=== PATIENT | female | born 1985 ===

== ENCOUNTER 2017-09-20 16:39 | Emergency (ER) | payer OTHER ==
[2017-09-20 16:45] VITALS: BP 108/71; PULSE 72; RESP 16; TEMP 97.6; O2SAT 98
[2017-09-20] MEDS ORDERED: Acetaminophen-Codeine 300/30 mg Tab PO STA (17:11)
--- NOTE | 2017-09-20 17:15 | ED PDOC ---
HPI: General Adult Time Seen by Provider: 09/20/17 17:00 Chief Complaint (Nursing): Abnormal Skin Integrity History Per: Patient History/Exam Limitations: no limitations Onset/Duration Of Symptoms: Days (x 3) Current Symptoms Are (Timing): Still Present Additional Complaint(s): Nydia is a 32 year old female who presents to the emergency department complaining of pain around rectum for 3 days. Patient reports pain with bowel movement. Denies discharge or fever. Patient reports taking Advil with no relief. No other medical problems at this time. PMD: No Family Provider Past Medical History Reviewed: Historical Data, Nursing Documentation, Vital Signs Vital Signs: Last Vital Signs Temp 97.6 F 09/20/17 16:44 Pulse 72 09/20/17 16:44 Resp 16 09/20/17 16:44 BP 108/71 09/20/17 16:44 Pulse Ox 98 09/20/17 17:32 - Medical History PMH: No Chronic Diseases - Surgical History Surgical History: No Surg Hx - Family History Family History: States: Unknown Family Hx - Home Medications Home Medications: Ambulatory Orders Medication Instructions Recorded Acetaminophen with Codeine 1 tab PO Q6H PRN #8 tab 09/20/17 [Tylenol with Codeine No. 3 300 mg-30 mg] Docusate [Colace] 100 mg PO BID #6 cap 09/20/17 Sulfamethoxazole/Trimethoprim 1 tab PO BID #10 tab 09/20/17 [Bactrim DS 800 mg-160 mg] - Allergies Allergies/Adverse Reactions: Allergies Allergy/AdvReac Type Severity Reaction Status Date / Time No Known Allergies Allergy Verified 09/20/17 16:43 Review of Systems ROS Statement: Except As Marked, All Systems Reviewed And Found Negative Constitutional: Negative for: Fever Gastrointestinal: Positive for: Rectal Pain (Pain around rectal), Other (Pain with bowel movement) Genitourinary Female: Negative for: Vaginal Discharge Physical Exam - Reviewed Nursing Documentation Reviewed: Yes Vital Signs Reviewed: Yes - Physical Exam Gastrointestinal/Abdominal: Positive for: Normal Exam, Soft. Negative for: Tenderness Rectal: Positive for: Tenderness (Tenderness to the perirectal area at 1 o'clock ). Negative for: Hemorrhoids, Mass, Other ((-): edema, obvious fissures, fluctuations) - ECG O2 Sat by Pulse Oximetry: 98 (RA) Pulse Ox Interpretation: Normal Medical Decision Making Medical Decision Making: Time: 17:00 Plan: - ED Urine Time: 17:11 - Tylenol/Codeine 300 MG/30 MG Upon provider evaluation patient is medically stable, and requires no further treatment in the ED at this time. Patient will be discharged with Rx for Tylenol with Codeine, Colace, and Bactrim DS. Counseling was provided and all questions were answered regarding diagnosis. There is agreement to discharge plan. Return if symptoms persist or worsen. Scribe Attestation: Documented by Sanket Licea, acting as a scribe for Norma Harman MD Provider Scribe Attestation: All medical record entries made by the Scribe were at my direction and personally dictated by me. I have reviewed the chart and agree that the record accurately reflects my personal performance of the history, physical exam, medical decision making, and the department course for this patient. I have also personally directed, reviewed, and agree with the discharge instructions and disposition. Disposition - Clinical Impression Clinical Impression: Rectal pain - Patient ED Disposition Is Patient to be Admitted: No - Disposition Referrals: [facility] [Outside] Disposition: Routine/Home Disposition Time: 17:14 Condition: STABLE Prescriptions: Acetaminophen with Codeine [Tylenol with Codeine No. 3 300 mg-30 mg] 1 tab PO Q6H PRN #8 tab PRN Reason: Pain, Severe (8-10) Docusate [Colace] 100 mg PO BID #6 cap Sulfamethoxazole/Trimethoprim [Bactrim DS 800 mg-160 mg] 1 tab PO BID #10 tab Instructions: Rectal Pain (ED) Forms: Gigamon (Guinean), Gigamon (Czech) Print Language: NAMIBIAN
[2017-09-20] MEDS ORDERED: Acetaminophen-Codeine 300/30 mg Tab ONE (18:15)
== END 2017-09-20 18:24 | disposition home or self-care (01) ==
LOC: H.ER 16:39
DX: K62.89 Other specified diseases of anus and rectum (principal)

== ENCOUNTER 2017-10-06 20:09 | Inpatient (IN) | payer MEDICAID, SELFPAY ==
[2017-10-06] MEDS ORDERED: Sodium Chloride 0.9% 1,000 ML IV STA (21:52)
[2017-10-06] MEDS ORDERED: Morphine 4 MG/ML VIAL ONE (22:23)
[2017-10-06 22:24] LABS: BASO % 0.2 % (0.0-2.0); EOS # 0.1 K/uL (0.0-0.7); EOS % 0.8 % (0.0-4.0); HEMOGLOBIN 12.4 g/dL (12.0-16.0); LYMPH # 3.3 K/uL (1.0-4.3); LYMPH % 23.7 % (20.0-40.0); MEAN CELL VOLUME 84.2 fl (81.0-99.0); MEAN CORPUSCULAR HEMOGLOBIN 27.7 pg (27.0-31.0); MEAN CORPUSCULAR HGB CONC 32.9 g/dL (33.0-37.0); MEAN PLATELET VOLUME 8.8 fl (7.2-11.7); MONO # 0.9 K/uL (0.0-0.8); MONO % 6.8 % (0.0-10.0); NEUT # 9.4 K/uL (1.8-7.0); NEUT % 68.5 % (50.0-75.0); RBC 4.48 Mil/uL (3.80-5.20); WHITE BLOOD COUNT 13.7 K/uL (4.8-10.8)
[2017-10-06 22:35] LABS: ALB/GLOB RATIO 1.1 (1.0-2.1); ALBUMIN 3.9 g/dL (3.5-5.0); ALT/SGPT 26 U/L (9-52); AST/SGOT 22 U/L (14-36); BLOOD UREA NITROGEN 14 mg/dl (7-17); CALCIUM 8.8 mg/dL (8.4-10.2); GFR AFRICAN-AMERICAN > 60; GFR NON-AFRICAN AMERICAN > 60
[2017-10-06] MEDS ORDERED: Sodium Chloride 0.9% 50 ML IV ONE (23:05)
[2017-10-06] MEDS ORDERED: Iohexol 300 100 ML IJ ONE (23:05)
--- NOTE | 2017-10-07 00:04 | CT ---
EXAM: CT Pelvis With Intravenous Contrast EXAM DATE/TIME: 10/06/2017 9:53 PM CLINICAL HISTORY: 32 years old, female; Pain; Other: Rectal pain TECHNIQUE: Axial computed tomography images of the pelvis with intravenous contrast. All CT scans at this facility use one or more dose reduction techniques, viz.: automated exposure control; ma/kV adjustment per patient size (including targeted exams where dose is matched to indication; i.e. head); or iterative reconstruction technique. Coronal and sagittal reformatted images were created and reviewed. CONTRAST: 95 mL of [id number] administered intravenously. COMPARISON: There are no prior studies for comparison. FINDINGS: Bowel: Small bowel loops in the pelvis are mildly distended with fluid and air.ileocecal region is incompletely imaged. Visualized portions of the appendix is unremarkable Colon is incompletely distended which limits evaluation. There is minimal diverticulosis. There is minimal hyperemia in the right perirectal soft tissues. There is a 4 mm low-attenuation right perirectal lesion with peripheral enhancement, image 80 series 3, image 82 series 601 Appendix: See stomach and bowel Intraperitoneal space: There is no significant fluid.There is no free air. Bladder: Bladder is partially distended. Reproductive: Uterus is unremarkable. There is prominence of the right adnexa. There is a small corpus luteum in the right adnexa. There are small right pelvic varices. There is an 8 x 8 x 7.5 cm left adnexal cyst. Bones/joints: There are no acute osseous abnormalities. Soft tissues: unremarkable Vasculature: There are calcified phleboliths. Iliacs are unremarkable. Lymph nodes: unremarkable IMPRESSION: 8 x 8 x 7.5 cm left adnexal cyst; prominence of the right adnexa with small corpus luteum; minimal right perirectal inflammation with 4 mm low-attenuation enhancing lesion possibly microabscess Additional nonemergent findings as described above.
[2017-10-07] MEDS ORDERED: Clindamycin 600mg/50ml NS 600 MG/50 ML BAG IVPB SCH (01:00)
--- NOTE | 2017-10-07 02:20 | CP.PCM.HP ---
History of Present Illness - History of Present Illness History of Present Illness: 32 yr old F presents to ED with complaint of severe right arpan-anal pain worsening over the past 7 weeks. Denies any significant PMHx. Patient reports she initially felt a nontender small bump to the right of her anus towards the end of july 2017. The bump became painful in August and since then has worsened to a 10/10 today, not alleviated by Advil or sitz bath. Patient cannot tolerate bowel movements despite minimal soft stool. She reports ED visit on and clinic f/u visit on 10/03/17 with no improvement despite completion of Bactrim DS 800/160mg PO x 5 days. Denies hx of constipation, anal sex, waxing or shaving. Denies fevers, chills, nausea, vomiting, hematochezia, hematuria or dysuria. No hx of hemorrhoids. No similar symptoms in the past. PMD: [facility]- had visit on 10/03/17 -Dr. Gaviria ObGyn: G0, LMP 09/19/17-menstrual cycle everymonth PMHx: none SurgHx: benign mass removed from right neck-2012 and right axilla 2014 FMHx: maternal grandmother-CAD; rest non-contributory SocHx: denies tobacco/Etoh or drugs Medications: Advil PRN for pain Allergies: NKDA ED course: vital signs wnl -CBC: WBC 13.7; CMP: K+ 3.5, rest wnl -Pelvis CT: minimal right arpan-rectal inflammation with 4mm low attenuation enhancing lesion, possibly microabscess (see full report) -Toradol 15mg IVP stat, Morphine 4mg IVP stat, NS 1,000mls/hr, Clindamycin 600mg IVP Q12, Blood culture, Surgery Consult Present on Admission - Present on Admission Any Indicators Present on Admission: No History of DVT/PE: No History of Uncontrolled Diabetes: No Urinary Catheter: No Decubitus Ulcer Present: No History Surgical Site Infection Following: None Review of Systems - Constitutional Constitutional: absent: Chills, Weight Loss, Weakness - EENT Eyes: absent: Blurred Vision, Change in Vision Nose/Mouth/Throat: absent: Nasal Congestion, Nasal Discharge - Cardiovascular Cardiovascular: absent: Chest Pain, Palpitations - Respiratory Respiratory: absent: Cough, Dyspnea - Gastrointestinal Gastrointestinal: absent: Abdominal Pain, Constipation, Diarrhea, Hematochezia, Nausea, Vomiting - Genitourinary Genitourinary: absent: Difficulty Urinating, Dysuria, Hematuria - Reproductive: Female Reproductive:Female: Normal Menses - Musculoskeletal Musculoskeletal: absent: Back Pain - Integumentary Integumentary: Skin Pain (right arpan-anal area). absent: Bleeding Lesions, Pruritus - Neurological Neurological: absent: Confusion, Headaches, Weakness - Hematologic/Lymphatic Hematologic: absent: Easy Bleeding, Easy Bruising Past Patient History - Past Social History Smoking Status: Never Smoked - PSYCHIATRIC Hx Substance Use: No - SURGICAL HISTORY Hx Surgeries: No - ANESTHESIA Hx Anesthesia: No Meds Allergies/Adverse Reactions: Allergies Allergy/AdvReac Type Severity Reaction Status Date / Time No Known Allergies Allergy Verified 10/07/17 02:00 Physical Exam - Constitutional Appears: No Acute Distress - Head Exam Head Exam: ATRAUMATIC, NORMOCEPHALIC - Eye Exam Eye Exam: EOMI, PERRL - ENT Exam ENT Exam: Mucous Membranes Moist - Neck Exam Neck exam: Positive for: Full Rom. Negative for: Lymphadenopathy - Respiratory Exam Respiratory Exam: Clear to Auscultation Bilateral, NORMAL BREATHING PATTERN - Cardiovascular Exam Cardiovascular Exam: REGULAR RHYTHM, +S1, +S2 - GI/Abdominal Exam GI & Abdominal Exam: Normal Bowel Sounds, Soft. absent: Distended, Tenderness - Rectal Exam Additional comments: superficial non-erthymatous 0.5cm right arpan-anal papule-very tender; patient displayed guarding, could not tolerate digital rectal exam. - Extremities Exam Extremities exam: Positive for: full ROM. Negative for: calf tenderness, pedal edema - Neurological Exam Neurological exam: Alert, CN II-XII Intact, Oriented x3 - Psychiatric Exam Psychiatric exam: Normal Affect, Normal Mood - Skin Skin Exam: Dry, Intact, Normal Color, Warm Results - Vital Signs Recent Vital Signs: Last Vital Signs Temp 99.4 F 10/06/17 20:24 Pulse 90 10/06/17 20:24 Resp 18 10/06/17 20:24 BP 125/71 10/06/17 20:24 Pulse Ox 99 10/06/17 20:24 - Labs Result Diagrams: 10/06/17 22:20 10/06/17 22:20 Labs: Laboratory Results - last 24 hr 10/06/17 10/06/17 22:20 22:20 WBC 13.7 H RBC 4.48 Hgb 12.4 Hct 37.7 MCV 84.2 MCH 27.7 MCHC 32.9 L RDW 13.0 Plt Count 197 MPV 8.8 Neut % (Auto) 68.5 Lymph % (Auto) 23.7 Haakon % (Auto) 6.8 Eos % (Auto) 0.8 Baso % (Auto) 0.2 Neut # (Auto) 9.4 H Lymph # (Auto) 3.3 Haakon # (Auto) 0.9 H Eos # (Auto) 0.1 Baso # (Auto) 0.0 Sodium 141 Potassium 3.5 L Chloride 104 Carbon Dioxide 25 Anion Gap 16 BUN 14 Creatinine 0.5 L Est GFR ( Amer) > 60 Est GFR (Non-Af Amer) > 60 Random Glucose 106 H Calcium 8.8 Total Bilirubin 0.3 AST 22 ALT 26 Alkaline Phosphatase 85 Total Protein 7.7 Albumin 3.9 Globulin 3.7 Albumin/Globulin Ratio 1.1 Assessment & Plan - Assessment and Plan (Free Text) Assessment: 32 yr old F admitted for arpan-rectal abscess. 1. Arpan-rectal abscess with severe pain -Pelvis CT: minimal right arpan-rectal inflammation with 4mm low attenuation enhancing lesion, possibly microabscess (see full report) -CBC: WBC 13.7 -admit to med/surg -pain management, Colace PO BID, consider ID consult -Surgery consult: will follow recommendations -Clindamycin 600mg IVP Q12 2. DVT prophylaxis -patient ambulates, SCD's as needed - Date & Time Date: 10/07/17 Time: 13:50
--- NOTE | 2017-10-07 03:16 | ED PDOC ---
HPI: General Adult Time Seen by Provider: 10/06/17 20:35 Chief Complaint (Nursing): Abnormal Skin Integrity Chief Complaint (Provider): Rectal pain x 2 weeks History Per: Patient History/Exam Limitations: no limitations Onset/Duration Of Symptoms: Days Have you had recent travel within the past 21 days to any of the following countries: [place], [place], [place] or [place]?: No Current Symptoms Are (Timing): Still Present Additional Complaint(s): 32 yo female with no medical problems presents with rectal pain, more on the right for 2 weeks. Pt was placed on bactrim in ER and d/saima with tylenol #3. Pt reports no improvement. Pt was also seen at the clinic 2 days ago. Pt denies fever. Past Medical History Reviewed: Historical Data, Nursing Documentation, Vital Signs Vital Signs: Last Vital Signs Temp 98.4 F 10/07/17 01:54 Pulse 76 10/07/17 01:54 Resp 18 10/07/17 01:54 BP 108/62 10/07/17 01:54 Pulse Ox 98 10/07/17 01:54 - Medical History PMH: No Chronic Diseases - Surgical History Surgical History: No Surg Hx - Family History Family History: States: Unknown Family Hx - Living Arrangements Living Arrangements: With Family - Social History Current smoker - smoking cessation education provided: No - Home Medications Home Medications: Ambulatory Orders Medication Instructions Recorded No Known Home Med 10/07/17 - Allergies Allergies/Adverse Reactions: Allergies Allergy/AdvReac Type Severity Reaction Status Date / Time No Known Allergies Allergy Verified 10/07/17 02:00 Review of Systems ROS Statement: Except As Marked, All Systems Reviewed And Found Negative Constitutional: Negative for: Fever, Chills, Sweats Gastrointestinal: Positive for: Rectal Pain. Negative for: Nausea, Vomiting, Abdominal Pain Physical Exam - Reviewed Nursing Documentation Reviewed: Yes Vital Signs Reviewed: Yes - Physical Exam Appears: Positive for: Well, Non-toxic, No Acute Distress Head Exam: Positive for: ATRAUMATIC, NORMAL INSPECTION, NORMOCEPHALIC Skin: Positive for: Normal Color, Warm, DRY Eye Exam: Positive for: Normal appearance ENT: Positive for: Normal ENT Inspection Neck: Positive for: Normal, Painless ROM Cardiovascular/Chest: Positive for: Regular Rate, Rhythm Respiratory: Positive for: Normal Breath Sounds. Negative for: Decreased Breath Sounds, Accessory Muscle Use, Respiratory Distress Gastrointestinal/Abdominal: Positive for: Normal Exam, Bowel Sounds, Soft Back: Positive for: Normal Inspection Rectal: Positive for: Other (Tenderness right side, indurated/firm area) Extremity: Positive for: Normal ROM Neurologic/Psych: Positive for: Alert, Oriented - Laboratory Results Result Diagrams: 10/06/17 22:20 10/06/17 22:20 - ECG O2 Sat by Pulse Oximetry: 98 Medical Decision Making Medical Decision Making: CT with miroabscess and failed out patient treatment. Discussed admission with FM Resident. Disposition - Clinical Impression Clinical Impression: Perirectal abscess - Patient ED Disposition Is Patient to be Admitted: Yes - Disposition Disposition Time: 01:18 Condition: STABLE - Pt Status Changed To: Hospital Disposition Of: Observation - Admit Certification Admit to Inpatient:: M/S - POA Present On Arrival: None
[2017-10-07] MEDS ORDERED: Influenza Vaccine 18yr & older 0.5 ML/45 MCG SYR IM ONE (09:00)
--- NOTE | 2017-10-07 09:27 | CP.PCM.CON ---
History of Present Illness - History of Present Illness History of Present Illness: General Surgery: Dr Sethi Pt is a 32F with no significant PMH. Pt came to ED complaining of severe 10/10 right arpan-anal pain. Pt states it has been present for 6-7 weeks, and initially started as a small round lesion that was not very tender. Overtime pt states it got progressively larger and more tender, prompting her ED visit. Pt has been seen in the ED and clinic, and has completed a 5 day course of Bactrim as well as sitz baths, with no alleviation. States pain is significantly worse with defecation. Denies any blood on bowel movements or tissue paper. Denies any f/c, sob, chest pain, n/v. PMH: none PSH: neck mass excision, axillary mass excision 2014 LMP: 09/19/17 Review of Systems - Review of Systems All systems: reviewed and no additional remarkable complaints except (as per hpi ) Past Patient History - Past Medical History & Family History Past Medical History?: No - Past Social History Smoking Status: Never Smoked - CARDIAC Hx Cardiac Disorders: No - PULMONARY Hx Respiratory Disorders: No - NEUROLOGICAL Hx Neurological Disorder: No - HEENT Hx HEENT Problems: No - RENAL Hx Chronic Kidney Disease: No - ENDOCRINE/METABOLIC Hx Endocrine Disorders: No - HEMATOLOGICAL/ONCOLOGICAL Hx Blood Disorders: No Hx AIDS: No Hx Human Immunodeficiency Virus (HIV): No - INTEGUMENTARY Hx Dermatological Problems: No - MUSCULOSKELETAL/RHEUMATOLOGICAL Hx Musculoskeletal Disorders: No Hx Falls: No - GASTROINTESTINAL Hx Gastrointestinal Disorders: No - GENITOURINARY/GYNECOLOGICAL Hx Genitourinary Disorders: No - PSYCHIATRIC Hx Psychophysiologic Disorder: No Hx Substance Use: No - SURGICAL HISTORY Hx Surgeries: Yes Other/Comment: benign mass removal rt neck 2012 and rt axilla 2014 - ANESTHESIA Hx Anesthesia: Yes Hx Anesthesia Reactions: No Hx Malignant Hyperthermia: No Meds Allergies/Adverse Reactions: Allergies Allergy/AdvReac Type Severity Reaction Status Date / Time No Known Allergies Allergy Verified 10/07/17 02:00 - Medications Medications: Current Medications Acetaminophen (Tylenol 325mg Tab) 650 mg PO Q6 PRN PRN Reason: Pain, Mild (1-3) Docusate Sodium (Colace) 100 mg PO BID JACKY Enoxaparin Sodium (Lovenox) 40 mg SC HS JACKY PRN Reason: Protocol Ketorolac Tromethamine (Toradol) 15 mg IVP Q6 PRN PRN Reason: Pain, moderate (4-7) Morphine Sulfate (Morphine) 2 mg IVP Q6 PRN PRN Reason: Pain, severe (8-10) Physical Exam - Constitutional Appears: Non-toxic, No Acute Distress - Head Exam Head Exam: NORMAL INSPECTION - Eye Exam Eye Exam: Normal appearance - ENT Exam ENT Exam: Mucous Membranes Moist - Respiratory Exam Respiratory Exam: absent: Accessory Muscle Use, Respiratory Distress - Cardiovascular Exam Cardiovascular Exam: REGULAR RHYTHM. absent: Tachycardia - GI/Abdominal Exam GI & Abdominal Exam: Soft. absent: Tenderness - Rectal Exam Additional comments: small 2x2 cm area of erythema w/o induration there is a palpable 1x1 spherical tender lesion within the center of erythema - Extremities Exam Extremities exam: Negative for: pedal edema - Neurological Exam Neurological exam: Alert, Oriented x3 - Psychiatric Exam Psychiatric exam: Normal Affect, Normal Mood - Skin Skin Exam: Normal Color, Warm Results - Vital Signs Recent Vital Signs: Last Vital Signs Temp 97.4 F L 10/07/17 08:31 Pulse 71 10/07/17 08:31 Resp 18 10/07/17 08:31 BP 93/62 L 10/07/17 08:31 Pulse Ox 98 10/07/17 08:31 - Labs Result Diagrams: 10/06/17 22:20 10/06/17 22:20 Labs: Laboratory Results - last 24 hr 10/06/17 10/06/17 22:20 22:20 WBC 13.7 H RBC 4.48 Hgb 12.4 Hct 37.7 MCV 84.2 MCH 27.7 MCHC 32.9 L RDW 13.0 Plt Count 197 MPV 8.8 Neut % (Auto) 68.5 Lymph % (Auto) 23.7 Morris % (Auto) 6.8 Eos % (Auto) 0.8 Baso % (Auto) 0.2 Neut # (Auto) 9.4 H Lymph # (Auto) 3.3 Morris # (Auto) 0.9 H Eos # (Auto) 0.1 Baso # (Auto) 0.0 Sodium 141 Potassium 3.5 L Chloride 104 Carbon Dioxide 25 Anion Gap 16 BUN 14 Creatinine 0.5 L Est GFR ( Amer) > 60 Est GFR (Non-Af Amer) > 60 Random Glucose 106 H Calcium 8.8 Total Bilirubin 0.3 AST 22 ALT 26 Alkaline Phosphatase 85 Total Protein 7.7 Albumin 3.9 Globulin 3.7 Albumin/Globulin Ratio 1.1 Assessment & Plan - Assessment and Plan (Free Text) Assessment: 32F with questionable right arpan-rectal lesion Plan: cont abx NPO @ [place] for possible procedure tomorrow pt to be evaluate by attending before further recs will d/w Dr Navdeep Forde, PGY3
[2017-10-07] MEDS: Sodium Chloride 0.9% 1,000 ML IV SCH (11:26)
[2017-10-07] MEDS ORDERED: Potassium Chloride 10 mEq ER Tab PO SCH (13:00)
[2017-10-07] MEDS: Clindamycin 600mg/50ml NS 600 MG/50 ML BAG IVPB SCH (21:11)
[2017-10-07] MEDS: Enoxaparin 40 mg Syringe SC SCH (21:19)
[2017-10-08] MEDS: Sodium Chloride 0.9% 1,000 ML IV SCH (02:28)
[2017-10-08 06:19] LABS: HEMOGLOBIN 12.1 g/dL (12.0-16.0); MEAN CELL VOLUME 83.5 fl (81.0-99.0); MEAN CORPUSCULAR HGB CONC 33.5 g/dL (33.0-37.0); RBC 4.33 Mil/uL (3.80-5.20); RED CELL DISTRIBUTION WIDTH 13.1 % (11.5-14.5); WHITE BLOOD COUNT 7.9 K/uL (4.8-10.8)
[2017-10-08 06:43] LABS: BLOOD UREA NITROGEN 9 mg/dl (7-17); CALCIUM 8.2 mg/dL (8.4-10.2); GFR AFRICAN-AMERICAN > 60; GFR NON-AFRICAN AMERICAN > 60
--- NOTE | 2017-10-08 07:42 | CP.PCM.PN ---
Subjective - Date & Time of Evaluation Date of Evaluation: 10/08/17 Time of Evaluation: 07:40 - Subjective Subjective: General Surgery Progress Note: Dr Sethi 32 y/o female seen at bedside this AM. Pt states her pain is the same. Says she is having bowel movements that are normal in color and texture, but that her pain is still at its worst with defecation. She states the warm compresses are helping. Denies F/C/N/V. Objective - Vital Signs/Intake and Output Vital Signs (last 24 hours): Temp Pulse Resp BP Pulse Ox 98.2 F 63 18 90/55 L 98 10/08/17 00:59 10/08/17 00:59 10/08/17 00:59 10/08/17 00:59 10/08/17 00:59 - Medications Medications: Current Medications Acetaminophen (Tylenol 325mg Tab) 650 mg PO Q6 PRN PRN Reason: Pain, Mild (1-3) Docusate Sodium (Colace) 100 mg PO BID [facility] Last Admin: 10/07/17 17:23 Dose: 100 mg Enoxaparin Sodium (Lovenox) 40 mg SC HS JACKY PRN Reason: Protocol Last Admin: 10/07/17 21:19 Dose: 40 mg Sodium Chloride (Sodium Chloride 0.9%) 1,000 mls @ 125 mls/hr IV .Q8H [facility] Last Admin: 10/08/17 02:28 Dose: 125 mls/hr Clindamycin Phosphate (Cleocin In Normal Saline) 600 mg in 50 mls @ 50 mls/hr IVPB Q12 JACKY PRN Reason: Protocol Last Admin: 10/07/17 21:11 Dose: 50 mls/hr Ketorolac Tromethamine (Toradol) 15 mg IVP Q6 PRN PRN Reason: Pain, moderate (4-7) Last Admin: 10/07/17 14:55 Dose: 15 mg Morphine Sulfate (Morphine) 2 mg IVP Q6 PRN PRN Reason: Pain, severe (8-10) Last Admin: 10/08/17 06:32 Dose: 2 mg - Labs Labs: 10/08/17 05:40 10/08/17 05:40 - Constitutional Appears: Well, Non-toxic, No Acute Distress - GI/Abdominal Exam GI & Abdominal Exam: Soft. absent: Tenderness - Rectal Exam Additional comments: small 2x2 cm area of erythema w/o induration there is a palpable 1x1 spherical tender lesion within the center of erythema - Neurological Exam Neurological Exam: Alert, Awake, Oriented x3 - Psychiatric Exam Psychiatric exam: Normal Affect, Normal Mood Assessment and Plan - Assessment and Plan (Free Text) Assessment: 32 y/o F with right arpan-rectal lesion Plan: -abscess too small for I&D -continue IV abx; leukocytosis trending down since admission -continue warm compresses -plan discussed with Dr. Sethi
--- NOTE | 2017-10-08 08:18 | CP.PCM.PN ---
Subjective - Date & Time of Evaluation Date of Evaluation: 10/08/17 Time of Evaluation: 07:50 - Subjective Subjective: Pt seen and examined at bedside laying on L lateral side. pt denies overnight events. Active bowel movements. Consistent rectal pain alleviated with Morphine and toradol. denies: cp/sob/n/v/dysuria Objective - Vital Signs/Intake and Output Vital Signs (last 24 hours): Temp Pulse Resp BP Pulse Ox 98.2 F 63 18 90/55 L 98 10/08/17 00:59 10/08/17 00:59 10/08/17 00:59 10/08/17 00:59 10/08/17 00:59 - Medications Medications: Current Medications Acetaminophen (Tylenol 325mg Tab) 650 mg PO Q6 PRN PRN Reason: Pain, Mild (1-3) Docusate Sodium (Colace) 100 mg PO BID [facility] Last Admin: 10/07/17 17:23 Dose: 100 mg Enoxaparin Sodium (Lovenox) 40 mg SC HS JACKY PRN Reason: Protocol Last Admin: 10/07/17 21:19 Dose: 40 mg Sodium Chloride (Sodium Chloride 0.9%) 1,000 mls @ 125 mls/hr IV .Q8H [facility] Last Admin: 10/08/17 02:28 Dose: 125 mls/hr Clindamycin Phosphate (Cleocin In Normal Saline) 600 mg in 50 mls @ 50 mls/hr IVPB Q12 JACKY PRN Reason: Protocol Last Admin: 10/07/17 21:11 Dose: 50 mls/hr Ketorolac Tromethamine (Toradol) 15 mg IVP Q6 PRN PRN Reason: Pain, moderate (4-7) Last Admin: 10/07/17 14:55 Dose: 15 mg Morphine Sulfate (Morphine) 2 mg IVP Q6 PRN PRN Reason: Pain, severe (8-10) Last Admin: 10/08/17 06:32 Dose: 2 mg - Labs Labs: 10/08/17 05:40 10/08/17 05:40 - Constitutional Appears: Well (Laying on L lateral side to alleviate rectal pain.) - Eye Exam Eye Exam: EOMI - Neck Exam Neck Exam: Full ROM - Respiratory Exam Respiratory Exam: Clear to Ausculation Bilateral, NORMAL BREATHING PATTERN. absent: Wheezes - Cardiovascular Exam Cardiovascular Exam: REGULAR RHYTHM, +S1, +S2 - GI/Abdominal Exam GI & Abdominal Exam: Soft, Normal Bowel Sounds. absent: Tenderness - Extremities Exam Extremities Exam: absent: Calf Tenderness - Back Exam Back Exam: absent: CVA tenderness (L), CVA tenderness (R) - Neurological Exam Neurological Exam: Alert, Awake, CN II-XII Intact, Oriented x3 - Psychiatric Exam Psychiatric exam: Normal Affect, Normal Mood Assessment and Plan - Assessment and Plan (Free Text) Plan: 1. Arpan-rectal abscess with severe pain -Pelvis CT: minimal right arpan-rectal inflammation with 4mm low attenuation enhancing lesion, possibly microabscess (please see full report) -CBC: WBC 13.7; 10/08/2017: 7.9 -admit to med/surg -pain management: Acetaminophen 325 mg q6; toradol 15mg q6 prn; morphine 2 mg ivp q6 prn -Colace 100mg PO BID -Surgery consult: abscess too small for I&d; warm compress and continue abx -Clindamycin 600mg IVP Q12; consider ID consult 2. Hypokalemia - 3.5; 10/08/2017: 3.9 - kdur 10meq PO given 10/07/2017 3. DVT prophylaxis -lovenox 40mg -patient ambulates, SCD's as needed
[2017-10-08] MEDS: Clindamycin 600mg/50ml NS 600 MG/50 ML BAG IVPB SCH ×2 (09:38→21:00)
[2017-10-08] MEDS ORDERED: Povidone Iodine Topical 10% Sol ONE (13:24)
[2017-10-08] MEDS ORDERED: Lidocaine 2% Inj (20ml) ONE (13:59)
[2017-10-08] MEDS ORDERED: Lidocaine 2% GEL TOP ONE (13:59)
[2017-10-08] MEDS: Enoxaparin 40 mg Syringe SC SCH (21:51)
[2017-10-09 08:29] VITALS: BP 96/61; PULSE 68; RESP 18; TEMP 98; O2SAT 98
--- NOTE | 2017-10-09 09:42 | CP.PCM.PN ---
Subjective - Date & Time of Evaluation Date of Evaluation: 10/09/17 Time of Evaluation: 07:50 Objective - Vital Signs/Intake and Output Vital Signs (last 24 hours): Temp Pulse Resp BP Pulse Ox 98 F 68 18 96/61 L 98 10/09/17 08:28 10/09/17 08:28 10/09/17 08:28 10/09/17 08:28 10/09/17 08:28 - Medications Medications: Current Medications Acetaminophen (Tylenol 325mg Tab) 650 mg PO Q6 PRN PRN Reason: Pain, Mild (1-3) Docusate Sodium (Colace) 100 mg PO BID [facility] Last Admin: 10/08/17 16:53 Dose: 100 mg Enoxaparin Sodium (Lovenox) 40 mg SC HS JACKY PRN Reason: Protocol Last Admin: 10/08/17 21:51 Dose: 40 mg Clindamycin Phosphate (Cleocin In Normal Saline) 600 mg in 50 mls @ 50 mls/hr IVPB Q12 JACKY PRN Reason: Protocol Last Admin: 10/08/17 21:00 Dose: 50 mls/hr Ketorolac Tromethamine (Toradol) 15 mg IVP Q6 PRN PRN Reason: Pain, moderate (4-7) Last Admin: 10/07/17 14:55 Dose: 15 mg Morphine Sulfate (Morphine) 2 mg IVP Q6 PRN PRN Reason: Pain, severe (8-10) Last Admin: 10/08/17 06:32 Dose: 2 mg - Labs Labs: 10/08/17 05:40 10/08/17 05:40
[2017-10-09] MEDS: Clindamycin 600mg/50ml NS 600 MG/50 ML BAG IVPB SCH (09:44)
--- NOTE | 2017-10-09 11:10 | CP.PCM.DIS ---
Provider - Provider Date of Admission: 10/07/17 12:53 Attending physician: Tasneem Veronica MD Time Spent in preparation of Discharge (in minutes): 25 Hospital Course - Lab Results Lab Results: Micro Results 10/07/17 02:29 Blood Blood Culture - Preliminary NO GROWTH AFTER 48 HOURS 10/07/17 01:55 Blood Blood Culture - Preliminary NO GROWTH AFTER 48 HOURS Most Recent Lab Values WBC 7.9 K/uL (4.8-10.8) 10/08/17 05:40 RBC 4.33 Mil/uL (3.80-5.20) 10/08/17 05:40 Hgb 12.1 g/dL (12.0-16.0) 10/08/17 05:40 Hct 36.1 % (34.0-47.0) 10/08/17 05:40 MCV 83.5 fl (81.0-99.0) 10/08/17 05:40 MCH 28.0 pg (27.0-31.0) 10/08/17 05:40 MCHC 33.5 g/dL (33.0-37.0) 10/08/17 05:40 RDW 13.1 % (11.5-14.5) 10/08/17 05:40 Plt Count 189 K/uL (130-400) 10/08/17 05:40 MPV 8.8 fl (7.2-11.7) 10/06/17 22:20 Neut % (Auto) 68.5 % (50.0-75.0) 10/06/17 22:20 Lymph % (Auto) 23.7 % (20.0-40.0) 10/06/17 22:20 [place] % (Auto) 6.8 % (0.0-10.0) 10/06/17 22:20 Eos % (Auto) 0.8 % (0.0-4.0) 10/06/17 22:20 Baso % (Auto) 0.2 % (0.0-2.0) 10/06/17 22:20 Neut # (Auto) 9.4 K/uL (1.8-7.0) H 10/06/17 22:20 Lymph # (Auto) 3.3 K/uL (1.0-4.3) 10/06/17 22:20 [place] # (Auto) 0.9 K/uL (0.0-0.8) H 10/06/17 22:20 Eos # (Auto) 0.1 K/uL (0.0-0.7) 10/06/17 22:20 Baso # (Auto) 0.0 K/uL (0.0-0.2) 10/06/17 22:20 Sodium 142 mmol/l (132-148) 10/08/17 05:40 Potassium 3.9 MMOL/L (3.6-5.0) 10/08/17 05:40 Chloride 107 mmol/L (98-107) 10/08/17 05:40 Carbon Dioxide 26 mmol/L (22-30) 10/08/17 05:40 Anion Gap 13 (10-20) 10/08/17 05:40 BUN 9 mg/dl (7-17) 10/08/17 05:40 Creatinine 0.5 mg/dl (0.7-1.2) L 10/08/17 05:40 Est GFR ( Amer) > 60 10/08/17 05:40 Est GFR (Non-Af Amer) > 60 10/08/17 05:40 Random Glucose 93 mg/dL (65-105) 10/08/17 05:40 Calcium 8.2 mg/dL (8.4-10.2) L 10/08/17 05:40 Total Bilirubin 0.3 mg/dl (0.2-1.3) 10/06/17 22:20 AST 22 U/L (14-36) 10/06/17 22:20 ALT 26 U/L (9-52) 10/06/17 22:20 Alkaline Phosphatase 85 U/L (38-126) 10/06/17 22:20 Total Protein 7.7 G/DL (6.3-8.2) 10/06/17 22:20 Albumin 3.9 g/dL (3.5-5.0) 10/06/17 22:20 Globulin 3.7 gm/dL (2.2-3.9) 10/06/17 22:20 Albumin/Globulin Ratio 1.1 (1.0-2.1) 10/06/17 22:20 HIV 1&2 Ag/Ab, 4th Gen Nonreactive (Nonreactive) 10/08/17 05:40 - Hospital Course Hospital Course: 32 yr old F admitted for arpan-rectal abscess. I&D of abcess. Pt reported instant relief. Pt able to ambulate and sit w/o rectal discomfort. d/c home with continued abx: Clindamycin 300 mg q6 for 4 days, probiotics and colace. Encouraged yogurt intake. f/u in clinic with Dr. Gaviria. Discharge Exam - Head Exam Head Exam: NORMAL INSPECTION Discharge Plan - Discharge Medications Prescriptions: Bacillus Coagulans [Probiotic] 1 each PO DAILY #30 capsule. Clindamycin [Cleocin] 300 mg PO Q6 #16 cap Docusate [Colace] 100 mg PO BID #14 cap - Follow Up Plan Condition: STABLE Disposition: HOME/ ROUTINE Patient education suggested?: Yes Instructions: Abscess (GEN) Referrals: [facility] [Outside] Christine Gaviria MD [Family Provider] -
--- NOTE | 2017-10-09 11:17 | CP.PCM.PN ---
Subjective - Date & Time of Evaluation Date of Evaluation: 10/09/17 Time of Evaluation: 11:17 - Subjective Subjective: General Surgery Progress Note: Dr Sethi 32 y/o female seen at bedside this AM with surgery team. Pt states her pain is much better today and she can sit and lay without having any pain or discomfort in the rectal . Says she feels well today and is ready to go home. Denies F/C/N/ V. Objective - Vital Signs/Intake and Output Vital Signs (last 24 hours): Temp Pulse Resp BP Pulse Ox 98 F 68 18 96/61 L 98 10/09/17 08:28 10/09/17 08:28 10/09/17 08:28 10/09/17 08:28 10/09/17 08:28 - Medications Medications: Current Medications Acetaminophen (Tylenol 325mg Tab) 650 mg PO Q6 PRN PRN Reason: Pain, Mild (1-3) Docusate Sodium (Colace) 100 mg PO BID JACKY Last Admin: 10/09/17 09:45 Dose: 100 mg Enoxaparin Sodium (Lovenox) 40 mg SC HS JACKY PRN Reason: Protocol Last Admin: 10/08/17 21:51 Dose: 40 mg - Labs Labs: 10/08/17 05:40 10/08/17 05:40 - Constitutional Appears: Well, Non-toxic, No Acute Distress - Rectal Exam Additional comments: small 1.5 x 1.5cm area of erythema Central indurated lesion within erythematous region now less edematous s/p I&D; not warm to touch, minimal tenderness to palpation - Neurological Exam Neurological Exam: Alert, Awake, Oriented x3 - Psychiatric Exam Psychiatric exam: Normal Affect, Normal Mood Assessment and Plan - Assessment and Plan (Free Text) Assessment: 32 y/o female with arpan-rectal abscess, s/p incision and drainage at bedside Plan: -clinical improvement noted s/p I&D -encouraged probiotic intake -pt stable for discharge home with antibiotics -pt will F/U in [facility] with Dr. Gaviria -discussed with attending Dr. Sethi
== END 2017-10-09 13:44 | disposition home or self-care (01) | DRG 346 ==
LOC: H.ER 20:09 → H.ERHOLD 10-07 02:01 → H.MEDSURG1 10-07 03:49 → OBSVTOIN 10-07 12:53
PROVIDERS: ADMIT Family Medicine Geriatric Medicine; ATTEND Family Medicine Geriatric Medicine
PROC: 3E0234Z Introduction of Serum, Toxoid and Vaccine into Muscle, Percutaneous Approach (ICD-10-PCS; 2017-10-07)
PROC: 0D9P0ZZ Drainage of Rectum, Open Approach (ICD-10-PCS; principal; 2017-10-08)
DX: K61.1 Rectal abscess (principal); E87.6 Hypokalemia; Z23 Encounter for immunization

== ENCOUNTER 2017-10-28 15:18 | Emergency (ER) | payer SELFPAY ==
[2017-10-28 15:49] VITALS: RESP 18
[2017-10-28 18:50] LABS: BASO % 0.3 % (0.0-2.0); EOS # 0.1 K/uL (0.0-0.7); EOS % 0.6 % (0.0-4.0); HEMOGLOBIN 13.5 g/dL (12.0-16.0); LYMPH # 3.3 K/uL (1.0-4.3); MEAN CELL VOLUME 83.5 fl (81.0-99.0); MEAN CORPUSCULAR HEMOGLOBIN 28.2 pg (27.0-31.0); MEAN CORPUSCULAR HGB CONC 33.7 g/dL (33.0-37.0); MEAN PLATELET VOLUME 8.6 fl (7.2-11.7); MONO # 0.6 K/uL (0.0-0.8); MONO % 6.6 % (0.0-10.0); NEUT # 4.4 K/uL (1.8-7.0); NEUT % 52.5 % (50.0-75.0); NRBC % 0.8 % (0.0-0.0); RBC 4.8 Mil/uL (3.80-5.20); WHITE BLOOD COUNT 8.3 K/uL (4.8-10.8)
--- NOTE | 2017-10-28 19:11 | ED PDOC ---
HPI: General Adult Time Seen by Provider: 10/28/17 16:34 Chief Complaint (Nursing): Female Genitourinary History Per: Patient Additional Complaint(s): Pt. states since September she's had an intermittent arpan-rectal abscess. States that she was admitted into [facility] and had a bedside drainage of the mass done. Since then she's been f/u with [facility] and on Saturday mass returned. This morning mass began to drain. She went to [facility] who advised her to come to ED for surgical evaluation. Denies fever, melena, vomiting, abdominal pain. Past Medical History Reviewed: Historical Data, Nursing Documentation, Vital Signs Vital Signs: Last Vital Signs Temp 98.8 F 10/28/17 15:45 Pulse 61 10/28/17 15:45 Resp 18 10/28/17 15:45 BP 102/66 10/28/17 15:45 Pulse Ox 99 10/28/17 19:13 - Medical History PMH: Denies: HIV, Chronic Kidney Disease - Surgical History Surgical History: No Surg Hx - Family History Family History: States: No Known Family Hx - Home Medications Home Medications: Ambulatory Orders Medication Instructions Recorded Docusate [Colace] 100 mg PO BID PRN 10/28/17 Doxycycline Monohydrate 100 mg PO BID #14 capsule 10/28/17 Ibuprofen [Motrin Tab] 400 mg PO Q6 PRN 10/28/17 L. Acidophilus/Pectin, [place] 1 cap PO DAILY 10/28/17 [Acidophilus Probiotic Capsule] - Allergies Allergies/Adverse Reactions: Allergies Allergy/AdvReac Type Severity Reaction Status Date / Time No Known Allergies Allergy Verified 10/07/17 02:00 Review of Systems ROS Statement: Except As Marked, All Systems Reviewed And Found Negative Gastrointestinal: Positive for: Rectal Pain Physical Exam - Physical Exam Appears: Positive for: Well, Non-toxic, No Acute Distress Skin: Positive for: Normal Color, Warm. Negative for: Rash Gastrointestinal/Abdominal: Positive for: Normal Exam, Soft. Negative for: Tenderness Rectal: Positive for: Other (May RN present as coat room attendant; small drained abscess without discharge, fluctuance, or induration). Negative for: Blood Streaked Stool, Hemorrhoids Neurologic/Psych: Positive for: Alert, Oriented - Laboratory Results Result Diagrams: 10/28/17 18:34 10/28/17 18:34 - ECG O2 Sat by Pulse Oximetry: 99 - Progress ED Course And Treament: Pt. evaluated by Dr. Quinones, FP resident, in ED who agrees with surgical evaluation. Pt. evaluated by Dr. Resendez, surgical device sales representative, who performed rectal exam and does not feel that mass is tracking into rectum and does not think she needs a CT at this time unless she has an elevated WBC. Labs ordered. 2040 WBC is not elevated. Case d/w Dr. Resendez, who spoke with Dr. Worthy and states if patient can be dc'd with doxycycline Rx and can f/u with surgery clinic. Pt. informed of plan and agrees. She states she does not want another CT done as she just had one done last month. Instructed to f/u with surgical clinic on or Saturday. Disposition - Clinical Impression Clinical Impression: Perirectal abscess - Patient ED Disposition Is Patient to be Admitted: No - Disposition Referrals: [facility] [Outside] Disposition: Routine/Home Disposition Time: 20:41 Condition: STABLE Prescriptions: Doxycycline Monohydrate 100 mg PO BID #14 capsule Instructions: Boil Forms: [employer] (French) Print Language: MACEDONIAN - POA Present On Arrival: None
[2017-10-28 19:17] LABS: ALBUMIN 4.2 g/dL (3.5-5.0); ALT/SGPT 30 U/L (9-52); AST/SGOT 26 U/L (14-36); BLOOD UREA NITROGEN 10 mg/dl (7-17); CALCIUM 9.3 mg/dL (8.4-10.2); GFR AFRICAN-AMERICAN > 60; GFR NON-AFRICAN AMERICAN > 60
--- NOTE | 2017-10-28 19:38 | CP.PCM.CON ---
History of Present Illness - History of Present Illness History of Present Illness: General Surgery Consult for Dr. Worthy This is a 32F with no PMH she was admitted in September for a 4mm perirectal microabscess. She reports that she responded well to her course of antibiotics however the perianal/glutreal pain returned. She reports minima blood on toilet paper when cleaning herself. She denies any fevers, chills or anal/perianal discharge. Patient expresses desires to go home at this time. PMH: None PSH: Beign soft tissue mass excision right nexk and right axilla ALL: NKDA Social denies tobacco, etoh, drugs Review of Systems - Review of Systems All systems: reviewed and no additional remarkable complaints except - Constitutional Constitutional: absent: Anorexia, Chills, Fever, Malaise - EENT Eyes: absent: Blind Spots, Change in Vision Nose/Mouth/Throat: absent: Nasal Congestion, Nasal Discharge - Cardiovascular Cardiovascular: absent: Chest Pain, Dyspnea - Respiratory Respiratory: absent: Cough, Dyspnea, Wheezing, Pain on Inspiration - Gastrointestinal Gastrointestinal: absent: Diarrhea, Hematochezia, Melena, Nausea, Vomiting - Genitourinary Genitourinary: absent: Change in Urinary Stream, Dysuria Past Patient History - Past Medical History & Family History Past Medical History?: No - Past Social History Smoking Status: Never Smoked - CARDIAC Hx Cardiac Disorders: No - PULMONARY Hx Respiratory Disorders: No - NEUROLOGICAL Hx Neurological Disorder: No - HEENT Hx HEENT Problems: No - RENAL Hx Chronic Kidney Disease: No - ENDOCRINE/METABOLIC Hx Endocrine Disorders: No - HEMATOLOGICAL/ONCOLOGICAL Hx Human Immunodeficiency Virus (HIV): No - INTEGUMENTARY Hx Dermatological Problems: No - MUSCULOSKELETAL/RHEUMATOLOGICAL Hx Musculoskeletal Disorders: No Hx Falls: No - GASTROINTESTINAL Hx Gastrointestinal Disorders: No - GENITOURINARY/GYNECOLOGICAL Hx Genitourinary Disorders: No - PSYCHIATRIC Hx Psychophysiologic Disorder: No Hx Substance Use: No - SURGICAL HISTORY Hx Surgeries: Yes Other/Comment: benign mass removal rt neck 2012 and rt axilla 2014 - ANESTHESIA Hx Anesthesia: Yes Hx Anesthesia Reactions: No Hx Malignant Hyperthermia: No Meds Allergies/Adverse Reactions: Allergies Allergy/AdvReac Type Severity Reaction Status Date / Time No Known Allergies Allergy Verified 10/07/17 02:00 Physical Exam - Constitutional Appears: Non-toxic, No Acute Distress - Head Exam Head Exam: ATRAUMATIC, NORMOCEPHALIC - Eye Exam Eye Exam: EOMI, Normal appearance - ENT Exam ENT Exam: Mucous Membranes Moist - Respiratory Exam Respiratory Exam: NORMAL BREATHING PATTERN - Cardiovascular Exam Cardiovascular Exam: REGULAR RHYTHM - GI/Abdominal Exam GI & Abdominal Exam: Normal Bowel Sounds, Soft. absent: Distended, Firm, Guarding, Hernia, Tenderness - Rectal Exam Rectal Exam: NORMAL INSPECTION Additional comments: Rectal exam conducted with [facility] Tech as a sheet metal erector . No blood or discharge noted. No tenderness on exam. - Skin Skin Exam: Warm Results - Vital Signs Recent Vital Signs: Last Vital Signs Temp 98.8 F 10/28/17 15:45 Pulse 61 10/28/17 15:45 Resp 18 10/28/17 15:45 BP 102/66 10/28/17 15:45 Pulse Ox 99 10/28/17 19:13 - Labs Result Diagrams: 10/28/17 18:34 10/28/17 18:34 Labs: Laboratory Results - last 24 hr 10/28/17 10/28/17 18:34 18:34 WBC 8.3 RBC 4.80 Hgb 13.5 Hct 40.1 MCV 83.5 MCH 28.2 MCHC 33.7 RDW 13.0 Plt Count 211 MPV 8.6 Neut % (Auto) 52.5 Lymph % (Auto) 40.0 [place] % (Auto) 6.6 Eos % (Auto) 0.6 Baso % (Auto) 0.3 Neut # (Auto) 4.4 Lymph # (Auto) 3.3 [place] # (Auto) 0.6 Eos # (Auto) 0.1 Baso # (Auto) 0.0 Sodium 142 Potassium 3.9 Chloride 100 Carbon Dioxide 27 Anion Gap 19 BUN 10 Creatinine 0.5 L Est GFR ( Amer) > 60 Est GFR (Non-Af Amer) > 60 Random Glucose 94 Calcium 9.3 Total Bilirubin 0.7 AST 26 ALT 30 Alkaline Phosphatase 89 Total Protein 8.3 H Albumin 4.2 Globulin 4.1 H Albumin/Globulin Ratio 1.0 Assessment & Plan - Assessment and Plan (Free Text) Assessment: This is a 32 year old female with gluteal tenderness possible developing abscess vs cellulitic changes Vital signs stable, no leukocytosis, negative exam Discharge at discretion of family medicine If patient is admitted will repeat CT scan If patient is discharged recommend followup in general surgery clinic. Recommend discharge with antibiotics If symptoms worsen, drainage develops, fever develops please return to ED Case discussed with Dr. Deacon Resendez PGY2
[2017-10-28 21:05] VITALS: BP 104/70; PULSE 68; TEMP 98; O2SAT 98
== END 2017-10-28 21:07 | disposition home or self-care (01) ==
LOC: H.ER 15:18
DX: K61.1 Rectal abscess (principal)